=== PATIENT | female | born 1985 | race Hispanic/Latino ===

== ENCOUNTER 2018-04-26 15:39 | Emergency (ER) | payer SELFPAY ==
[~2018-04-26] VITALS: Ht 159 cm; Wt 68.0 kg
[~2018-04-26 15:39] MED LIST: AZITHROMYCIN250 M1 PO; ZOFRAN ODT4 M1 SL
--- NOTE | 2018-04-26 16:07 | ED GI/GU/ABDOMINAL COMPLAINT ---
History of Present Illness General Chief Complaint: General Adult Stated Complaint: BLEEDING +16 WEEKS Source: patient Exam Limitations: no limitations Vital Signs & Intake/Output Vital Signs & Intake/Output Vital Signs Date Time Temp Pulse Resp B/P B/P Pulse O2 O2 Flow FiO2 Mean Ox Delivery Rate 04/26 2014 98.3 82 18 122/72 97 Room Air 04/26 1739 88 18 124/68 99 Room Air 04/26 1544 98.2 96 18 113/76 99 Room Air Allergies Coded Allergies: Penicillins (Intermediate, RASH 04/26/18) Triage Note: PRESENTS TO THE HOSPITAL FOR EVALUATION OF VAGINAL BLEEDING. BEGAN BLEEDING APPROXIMATELY ONE HR AGO. SHE IS CURRENTLY 16 WEEKS . Triage Nurses Notes Reviewed? yes ? y Is pt currently ? No Onset: Abrupt Duration: hour(s):, constant Timing: single episode today Radiation: no radiation Activities at Onset: none HPI: 32-year-old female comes into the emergency room for further evaluation of some vaginal bleeding that began about an hour or 2 ago prior to arrival. She is approximately 16 weeks . Denies any abdominal pain. Denies any complications with . Denies any other associated symptoms. Comes in for further evaluation. (López Gonzalez) Past History Travel History Traveled to [place] past 21 day Yes Medical History Any Pertinent Medical History? none Surgical History Surgical History: non-contributory Psychosocial History What is your primary language Italian Tobacco Use: Never used Family History Hx Contributory? No (López Gonzalez) Review of Systems Review of Systems Constitutional: Reports: no symptoms. EENTM: Reports: no symptoms. Respiratory: Reports: no symptoms. Cardiovascular: Reports: no symptoms. GI: Reports: no symptoms. Genitourinary: Reports: no symptoms. Musculoskeletal: Reports: no symptoms. Skin: Reports: no symptoms. Neurological/Psychological: Reports: no symptoms. Hematologic/Endocrine: Reports: see HPI. Immunologic/Allergic: Reports: no symptoms. All Other Systems: Reviewed and Negative (López Gonzalez) Physical Exam Physical Exam General Appearance: well developed/nourished, alert, awake Head: atraumatic Eyes: Bilateral: normal appearance. Ears, Nose, Throat, Mouth: hearing grossly normal, moist mucous membrane Neck: normal inspection Respiratory: normal breath sounds, no respiratory distress Gastrointestinal: soft, non-tender Back: normal inspection Extremities: normal range of motion Neurologic/Psych: awake, alert, oriented x 3 Core Measures ACS in differential dx? No Sepsis Present: No Sepsis Focused Exam Completed? No (Terry AMBROCIO,López) Progress Differential Diagnosis: appendicitis, intrauterine , kidney stone, ovarian cyst, ovarian torsion, threatened AB, UTI/pyelo Plan of Care: Orders Procedure Date/time Status HUMAN BETA HCG TITRE 04/26 155 Complete URINALYSIS 04/26 1542 Complete COMPREHENSIVE METABOLIC PANEL 04/26 1542 Complete CBC WITHOUT DIFFERENTIAL 04/26 1542 Complete RHOGAM WORK-UP 04/26 1542 Complete Laboratory Tests 04/26/18 192: Urine Color YEL, Urine Clarity CLEAR, Urine pH 6.5, Ur Specific [place] 1.015, Urine Protein NEG, Urine Ketones 40 H, Urine Nitrite NEG, Urine Bilirubin NEG, Urine Urobilinogen 0.2, Ur Leukocyte Esterase NEG, Ur Microscopic SEDIMENT EXAMINED, Urine RBC 1-3, Urine WBC 1-3 H, Ur Epithelial Cells FEW, Urine Bacteria RARE H, Urine Hemoglobin LARGE H, Urine Glucose NEG 04/26/18 155: Anion Gap 11, Estimated GFR > 60, BUN/Creatinine Ratio 13.3, Glucose 85, Calcium 9.4, Total Bilirubin 0.4, AST 15, ALT 21, Alkaline Phosphatase 82, Total Protein 7.3, Albumin 3.8, Globulin 3.5, Albumin/Globulin Ratio 1.1, Beta HCG, Quant 82572.0, CBC w Diff NO MAN DIFF REQ, RBC 4.68, MCV 87.0, MCH 29.6, MCHC 34.0, RDW 13.6, MPV 7.7, Gran % 63.6, Lymphocytes % 25.1, Monocytes % 7.4, Eosinophils % 3.5, Basophils % 0.4, Absolute Granulocytes 6.0, Absolute Lymphocytes 2.4, Absolute Monocytes 0.7 H, Absolute Eosinophils 0.3, Absolute Basophils 0 04/26/18 1549: Beta HCG, Quant Cancelled Diagnostic Imaging: Viewed by Me: Ultrasound. Discussed w/RAD: Ultrasound. Radiology Impression: PATIENT: CAITLYN TALBERT PRESENT AGE: 32 PATIENT ACCOUNT NO: [id number] : 85 LOCATION: [facility] ORDERING PHYSICIAN: Connor AMBROCIO SERVICE DATE: 04/26/18-1541 EXAM TYPE: US - US- VIABILITY EXAMINATION: US , VIABILITY INDICATION: , vaginal bleeding. LMP was on 01/07/2018. The gestational age based on LMP is 15 weeks and 4 days with estimated due date of 10/14/2018. TECHNIQUE: Real-time ultrasound of was performed with a 3 MHz transducer accessing grayscale appearance and color Doppler flow. COMPARISON: None FINDINGS : Multiple sonographic images of the pelvis demonstrates a single live intrauterine . heart rate of 125 beats per minute is detected. The placenta appears to be posterior in position. No placenta previa demonstrated on the submitted images. Vertex presentation. There is normal amniotic fluid volume. The abdominal circumference is 9.65 cm ( 15 weeks 6 days ). The head circumference is 10.8 cm, corresponds to 15 weeks 2 days. The BPD is 2.74 cm, corresponds to 15 weeks 0 day. The femoral length measures about 1.82 cm, corresponds to 15 weeks 3 days. This corresponds to a mean age of 15 weeks and 3 days with estimated and expected date of delivery on 10/15/2018. This correlates well with the patient's last menstrual period of 01/07/2018. The cervical canal measures about 4.5 cm in length. A small amount of fluid echogenicity is seen within the cervical canal, can represent current blood. ( The cervical canal is measured with partially full bladder.) The right ovary is not seen. The left ovary measures about 2.1 x 3.4 x 1.6 cm and is unremarkable. No pelvic free fluid. IMPRESSION: Mean age of 15 weeks and 3 days, with expected date of delivery 10/15/2018. Secondary to the early stage of , anatomy is difficult to evaluate and further measurements for a more comprehensive age estimate cannot be taken. DICTATED BY: Eileen Novak MD DATE /TIME DICTATED:04/26/181842 [employer] ARCHITECT:ALIZE DATE/TIME TRANSCRIBED: 04/26/181842 CONFIDENTIAL, DO NOT COPY WITHOUT APPROPRIATE AUTHORIZATION. < Electronically signed in Other Vendor System> SIGNED BY: Eileen Novak MD 04/26/18 2636 Initial ED EKG: none Comments: 04/26/2018 8:23:04 PM Patient clinically looks well. Patient is no apparent distress. Patient is nontoxic-appearing. Resting comfortably in room. No active bleeding here in the emergency room. Hemodynamically stable. Follow-up with [facility] [facility] doctor. Patient seen by Dr. Vences. (López Gonzalez) Departure Departure Disposition: HOME OR SELF CARE Condition: Stable Clinical Impression Primary Impression: Vaginal bleeding during Referrals: Patient Has No Primary Care Dr (PCP/Family) Additional Instructions: Follow-up with [facility] [employer] [facility] doctor. Return if any concerns worsening symptoms. Return if any increased bleeding. Please go over all results of today's visit with your primary care doctor. Contact your primary care doctor to let them know you were here in the emergency room. There may be nonspecific findings which may not be related to your visit today here in the emergency room but may require further evaluation and chronic monitoring by your primary care doctor. If you had a laceration today the chance of foreign body always remains. You should follow-up with your primary care doctor for recheck in 3-5 days for a wound check. If you had an x-ray done there is a chance that a fracture could have been missed on initial read and you should follow-up with your primary care doctor for repeat x-rays if symptoms persist. If your blood pressure was elevated here in the emergency room please have rechecked by [facility] primary care doctor within the next 48. If you were prescribed a narcotic here in the emergency room or any type of controlled substances you're not allowed to drive while taking this medication or operate any type of heavy machinery. Narcotics can make you feel lightheaded dizziness nausea and can cause constipation. You may need to draft roller picker a stool softener. Thank you for choosing [facility] emergency room. Please return to the emergency room immediately if you have any other concerns worsening of symptoms. Departure Forms: Customer Survey General Discharge Information (López Gonzalez) PA/SUR[employer]YOR CHAIN HELPER Co-Sign Statement Statement: ED Attending supervision documentation- [X] I saw and evaluated the patient. I have also reviewed all the pertinent lab results and diagnostic results. I agree with the findings and the plan of care as documented in the PA's/SURVEYOR CHAIN HELPER's documentation. [] I have reviewed the ED Record and agree with the PA's/SURVEYOR CHAIN HELPER's documentation. [] Additions or exceptions (if any) to the PAs/SURVEYOR CHAIN HELPER's note and plan are summarized below: [] (Samson Vences DO
[2018-04-26 16:10] LABS: ABSOLUTE BASOPHIL COUNT 0 /CUMM (0.0-0.2); ABSOLUTE EOSINOPHIL COUNT 0.3 /CUMM (0.0-0.7); ABSOLUTE LYMPH COUNT 2.4 /CUMM (1.2-3.4); ABSOLUTE MONOCYTE COUNT 0.7 /CUMM (0.10-0.60); BASOPHIL % 0.4 % (0.0-2.0); EOSINOPHIL % 3.5 % (0-5); GRANULOCYTE % 63.6 % (42.2-75.2); HEMATOCRIT 40.7 % (37-47); MEAN CORPUSCULAR HGB 29.6 PG (27.0-31.0); MEAN PLATELET VOLUME 7.7 FL (7.4-10.4); PLATELET COUNT 323 /CUMM (130-400); RBC DISTRIBUTION WIDTH 13.6 % (11.5-14.5); RED BLOOD CELL CT 4.68 /CUMM (4.20-5.40); WHITE BLOOD CELL COUNT 9.5 /CUMM (4.8-10.8)
--- NOTE | 2018-04-26 18:59 | ULTRASOUND REPORT ---
EXAMINATION: US , VIABILITY INDICATION: , vaginal bleeding. LMP was on 01/07/2018. The gestational age based on LMP is 15 weeks and 4 days with estimated due date of 10/14/2018. TECHNIQUE: Real-time ultrasound of was performed with a 3 MHz transducer accessing grayscale appearance and color Doppler flow. COMPARISON: None FINDINGS: Multiple sonographic images of the pelvis demonstrates a single live intrauterine . heart rate of 125 beats per minute is detected. The placenta appears to be posterior in position. No placenta previa demonstrated on the submitted images. Vertex presentation. There is normal amniotic fluid volume. The abdominal circumference is 9.65 cm ( 15 weeks 6 days). The head circumference is 10.8 cm, corresponds to 15 weeks 2 days. The BPD is 2.74 cm, corresponds to 15 weeks 0 day. The femoral length measures about 1.82 cm, corresponds to 15 weeks 3 days. This corresponds to a mean age of 15 weeks and 3 days with estimated and expected date of delivery on 10/15/2018. This correlates well with the patient's last menstrual period of 01/07/2018. The cervical canal measures about 4.5 cm in length. A small amount of fluid echogenicity is seen within the cervical canal, can represent current blood. ( The cervical canal is measured with partially full bladder.) The right ovary is not seen. The left ovary measures about 2.1 x 3.4 x 1.6 cm and is unremarkable. No pelvic free fluid. IMPRESSION: Mean age of 15 weeks and 3 days, with expected date of delivery 10/15/2018. Secondary to the early stage of , anatomy is difficult to evaluate and further measurements for a more comprehensive age estimate cannot be taken.
[2018-04-26 20:14] VITALS: BP 122/72
== END 2018-04-26 20:35 ==
LOC: ERH 15:39
PROVIDERS: Physician Assistant Medical
DX: O20.9 Hemorrhage in early pregnancy, unspecified (principal); Z3A.16 16 weeks gestation of pregnancy
CPT/HCPCS: 81001